=== PATIENT | male | born 1960 | race Caucasian/White ===

== ENCOUNTER 2016-04-13 16:29 | Emergency (ER) | payer BC, OTHER ==
[2016-04-13 16:41] VITALS: TEMP 98.7; BMI 28.8
--- NOTE | 2016-04-13 17:53 | DIRPT ---
CLINICAL DATA: Crushed middle finger with a granite counter top at work today EXAM: RIGHT FINGER(S) - 2+ VIEW COMPARISON: None FINDINGS: Soft tissue deformities at distal phalanx. Displaced comminuted fracture at tuft of distal phalanx RIGHT middle finger. No extension of fracture to DIP joint. Joint spaces preserved. No additional fracture or dislocation. IMPRESSION: Comminuted displaced fracture at tuft of distal phalanx RIGHT middle finger. Electronically Signed By: Gennaro Muniz M.D. On: 04/13/2016 17:50
[2016-04-13] MEDS ORDERED: OXYCODONE HCL 5 MG TABLET PO ONE (18:27)
[2016-04-13] MEDS ORDERED: IBUPROFEN 600 MG TAB PO ONE (18:27)
[2016-04-13] MEDS ORDERED: BUPIVACAINE 0.5% 30 ML VIAL INF ONE (18:27)
--- NOTE | 2016-04-13 18:44 | EDPRACDOC ---
- General Information Chief Complaint: Hand Pain Stated Complaint: CRUSHING INJURY RT FINGERS Time Seen by Provider: 04/13/16 18:19 Information Source: Patient Mode of Arrival: Car Home Medications: Home Medications Cephalexin Monohydrate [Keflex] 500 mg PO Q6H #28 cap 04/13/16 Ibuprofen 600 mg PO TID #20 tablet 04/13/16 Oxycodone Immediate Release [Oxycodone Immediate Release (OxyIR)] 5 mg PO Q6H PRN #30 tab 04/13/16 Unk Vitamin 0 mg PO .SEE COMMENTS 04/13/16 Allergies/Adverse Reactions: Allergies Allergy/AdvReac Type Severity Reaction Status Date / Time No Known Allergies Allergy Verified 11/17/11 16:01 - History of Present 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 CRUSHED IT BETWEEN 2 ROCKS AT WORK. NO OTHER INJURY REPORTED. Location: Reports: Right, 3rd Finger Mechanism: Reports: Crush Circumstances: Reports: Work-Related Associated Signs & Symptoms: Reports: None ED Past Medical History - History Reviewed Yes Nurses notes reviewed and agree except as marked - Patient Medical History Psychological History: Denies: Depression - Social Medical History Smoking Status: Former smoker EDM Review of Systems - Review of Systems ROS Negative Except as Marked: Yes All systems reviewed and were negative except as marked Constitutional: No Symptoms Reported Neurological: No Symptoms Reported Musculoskeletal: Hand Integumentary: Wound - Physical Exam Constitutional: Alert (Awake), No apparent distress Oriented to: Time, Person, Place Last recorded Vital Signs: Last Vital Signs Temp 98.7 F 04/13/16 16:38 Pulse 75 04/13/16 18:00 Resp 18 04/13/16 18:00 BP 139/75 04/13/16 18:00 Pulse Ox 98 04/13/16 18:00 Oxygen Pulse Oxygen Saturation 98 O2 Device Room Air Oxygen Flow Rate Fraction of Inspired Oxygen ( FIO2) - HEENT Head: Normal Eye Exam: Normal Neck: Normal, Denies Pain, Midline - Respiratory/Cardiovascular Respiratory: Normal - CTA Cardiovascular: Normal - GI Palpation: Normal Tenderness: Non tender - Musculoskeletal Back: Normal Extremities: Other (NOTED CRUSH INJURY TO RIGHT MIDDLE DISTAL PHALYNX; LACERATION TO TIP OF FINGER; ABOUT 2 CM WITH AVULSION OF TIP OF FINGER; NO NAILBED INVOLVEMENT) - Integumentary Skin: Normal Lymphatics: Normal - Neurologic Cerebellar: Normal Mood Description: Normal Thought: Coherent Perception: Normal ED Hand Problem Physical Exam - Musculoskeletal Hand: Normal Wrist: Normal Digit: Other (LACERATION TO TIP OF RIGHT MIDDLE FINGER;) Digit Strength: Normal Nail: Normal Nailbed: Normal Soft Tissue: Other Distal Function/Circulation: Normal - Integumentary Skin: Normal Lymphatics: Normal ED Procedures - Suture/Laceration Suture #1 Right Finger Wound Length (cm): 2.0 Wound's Depth, Shape: linear Wound Explored: contaminated Irrigated w/ Saline (ccs): 500 Betadine Prep?: Yes Anesthesia: 0.5% Sensorcaine Volume Anesthetic (ccs): 7 Wound Debrided: minimal Wound Margins: Revised Suture Size/Type: 4:0, nylon Number of Sutures: 6 Layer Closure?: No - Splinting 1st splint Location: RIGHT MIDDLE FINGER Pre-Made Type: FINGER SPLINT Splint: volar Pre-Proc Neuro Vasc Exam: normal Post-Proc Neuro Vasc Exam: normal - Nerve Block Procedure Prep: Sterile Local Drape, Betadine Site: RIGHT MIDDLE FINGER Injection Name and Amount: BUPIVICAINE, 0.5%, 7 CC Decision Time to Discharge: 19:32 - Departure Disposition: Home Condition: Good Final Diagnosis: DIGITAL BLOCK-JULIAN, [id number], SPLINT-JULIAN Open finger fracture Qualifiers: Encounter type: initial encounter Finger: middle finger Phalanx: distal Fracture alignment: displaced Laterality: right Qualified Code(s): S62.632B - Displaced fracture of distal phalanx of right middle finger, initial encounter for open fracture Instructions: RICE: Routine Care for Injuries, Finger Fracture (ED) Education/Counseling Given To: Patient Education/Counseling Given Regarding: Diagnosis, Treatment, Follow Up Referrals: None,No Provider [Primary Care Provider] - One Week Tavon Romero MD [Staff Physician] - One Week Prescriptions: Cephalexin Monohydrate [Keflex] 500 mg PO Q6H #28 cap Ibuprofen 600 mg PO TID #20 tablet Oxycodone Immediate Release [Oxycodone Immediate Release (OxyIR)] 5 mg PO Q6H PRN #30 tab PRN Reason: Pain Additional Instructions: KEEP WOUND WRAPPED AND CLEAN. CHANGE DRESSINGS DAILY. FOLLOW UP WITH ORTHO.
[2016-04-13 19:58] VITALS: BP 130/73; PULSE 69
== END 2016-04-13 19:48 | disposition home or self-care (01) ==
LOC: ED 16:29
DX: S62.632B Displaced fracture of distal phalanx of right middle finger, initial encounter for open fracture (principal); S61.212A Laceration without foreign body of right middle finger without damage to nail, initial encounter; W23.0XXA Caught, crushed, jammed, or pinched between moving objects, initial encounter; Y99.0 Civilian activity done for income or pay
CPT/HCPCS: 12001; 73140; 99284; J3490